=== PATIENT | male | born 1975 | race Asian ===

== ENCOUNTER 2025-05-28 09:23 | Emergency (ER) | payer BC ==
[2025-05-28 09:36] VITALS: BP 123/84; PULSE 98; RESP 20; TEMP 97.9; BMI 28.8
== END 2025-05-28 11:24 | disposition home or self-care (01) ==
LOC: JER 09:23 → JERFT 09:23
DX: S16.1XXA Strain of muscle, fascia and tendon at neck level, initial encounter (principal); M25.511 Pain in right shoulder; M25.571 Pain in right ankle and joints of right foot; V87.7XXA Person injured in collision between other specified motor vehicles (traffic), initial encounter; Y92.410 Unspecified street and highway as the place of occurrence of the external cause
CPT/HCPCS: 70450-TC; 72125-TC; 73030-TC-RT-FY; 73610-TC-RT-FY; 73630-TC-RT-FY; 99284-25